=== PATIENT | female | born 1985 | race Caucasian/White ===

== ENCOUNTER 2020-04-23 07:31 | Emergency (ER) | payer OTHER ==
[~2020-04-23] VITALS: Ht 182.9 cm; Wt 89.4 kg
[2020-04-23] MEDS ORDERED: IBUPROFEN 800 MG TAB PO ONE (08:00)
--- NOTE | 2020-04-23 08:37 | REPVR ---
PROCEDURE INFORMATION: Exam: XR Right Ankle Exam date and time: 04/23/2020 8:22 AM Age: 35 years old Clinical indication: Injury or trauma; Fall; Sprain or strain; Ankle; Right; Additional info: Fall pain to lateral malleolus TECHNIQUE: Imaging protocol: XR Right ankle. Views: 3 or more views. COMPARISON: No relevant prior studies available. FINDINGS: Bones/joints: Small minimal acute cortical avulsion fracture arises from the distal margin of the fibula. Ankle mortise is intact. Soft tissues: Soft tissue edema. IMPRESSION: Minimal cortical avulsion fracture distal fibula. Electronically signed by: Brigida Trammell On 04/23/2020 08:37:02 AM
--- NOTE | 2020-04-23 08:40 | REPVR ---
PROCEDURE INFORMATION: Exam: XR Left Wrist Exam date and time: 04/23/2020 8:22 AM Age: 35 years old Clinical indication: Injury or trauma; Fall; Sprain or strain; Wrist; Left; Additional info: Fall outstretched hand, pain over scaphoid TECHNIQUE: Imaging protocol: XR Left wrist. Views: 3 or more views. COMPARISON: No relevant prior studies available. FINDINGS: Bones/joints: There is fracture at the level of trapezium or trapezoid and due to superimposed positioning distinction of origin is difficult. Soft tissues: Normal. IMPRESSION: Acute distal radial carpal bone fracture most likely arising from the trapezium. Electronically signed by: Brigida Trammell On 04/23/2020 08:40:13 AM
--- NOTE | 2020-04-23 10:19 | REPVR ---
PROCEDURE INFORMATION: Exam: XR Right Wrist Exam date and time: 04/23/2020 9:40 AM Age: 35 years old Clinical indication: Injury or trauma; Fall; Sprain or strain; Carpals; Right; Additional info: Fall outstretched hand pain distal radius TECHNIQUE: Imaging protocol: XR Right wrist. Views: 3 or more views. COMPARISON: No relevant prior studies available. FINDINGS: Bones/joints: No acute bony injury or malalignment. Soft tissues: No radiopaque foreign body. IMPRESSION: No acute bony injury or malalignment. Electronically signed by: Chris Argueta On 04/23/2020 10:19:00 AM
[2020-04-23 10:38] VITALS: BP 123/98
[2020-04-23] MEDS ORDERED: wheelchair (11:37)
== END 2020-04-23 12:00 | disposition home or self-care (01) ==
LOC: M ED 07:31
DX: S62.175A Nondisplaced fracture of trapezium [larger multangular], left wrist, initial encounter for closed fracture (principal); S82.831A Other fracture of upper and lower end of right fibula, initial encounter for closed fracture; W19.XXXA Unspecified fall, initial encounter; Y92.830 Public park as the place of occurrence of the external cause; Y93.02 Activity, running; Y99.8 Other external cause status